=== PATIENT | male | born 1980 ===

== ENCOUNTER 2018-02-11 14:30 | Emergency (ER) | payer SELFPAY ==
[2018-02-11 14:39] VITALS: BMI 25.8
[2018-02-11 14:45] VITALS: TEMP 98.7
[2018-02-11] MEDS ORDERED: Multivitamin (MVI) 10 ML, Thiamine 100 MG, Folic Acid 1 MG in Dextrose 5% In Water 1,00... IV ONE (14:47)
--- NOTE | 2018-02-11 14:47 | ED PDOC ---
Arrival/HPI - General Chief Complaint: Alcohol Ingestion Time Seen by Provider: 02/11/18 14:43 Historian: Patient - History of Present Illness Narrative History of Present Illness (Text): 02/11/18 14:44 38 y/o male, no significant pmh, nkda, biba for publicly intoxication x 1 hour. Pt. was found by the police which he was found sleeping on the street with alcohol breath. Pt. stated that he has no fall or trauma, no head/neck or back pain, stated that he just want to sleep, no abdominal or pelvic pain, no night sweat, no rash, no numbness or tingling, no other medical or psychological complaints. Past Medical History - Provider Review Nursing Documentation Reviewed: Yes - Infectious Disease Hx of Infectious Diseases: None - Musculoskeletal/Rheumatological Hx Falls: Yes - Psychiatric Hx Substance Use: No Other/Comment: Alcohol Abuse Family/Social History - Physician Review Nursing Documentation Reviewed: Yes Family/Social History: Unknown Family HX Smoking Status: Current Some Days Smoker Hx Alcohol Use: Yes Frequency of alcohol use: Daily Hx Substance Use: No Allergies/Home Meds Allergies/Adverse Reactions: Allergies No Known Allergies Allergy (Verified 02/11/18 14:36) Home Medications: Home Meds Medication Instructions Recorded Confirmed No Known Home Med 02/11/18 02/11/18 Review of Systems - Review of Systems Constitutional: absent: Fatigue, Fevers Eyes: absent: Vision Changes ENT: absent: Hearing Changes Respiratory: absent: SOB, Cough Cardiovascular: absent: Chest Pain Gastrointestinal: absent: Abdominal Pain, Nausea, Vomiting Skin: absent: Rash, Pruritis Neurological: absent: Headache, Dizziness Psychiatric: absent: Anxiety, Depression, Suicidal Ideation Physical Exam Vital Signs Reviewed: Yes Vital Signs Temp Pulse Resp BP Pulse Ox 02/11/18 16:28 100 H 18 111/76 97 02/11/18 14:44 98.7 F 101 H 22 128/85 98 Temperature: Afebrile Blood Pressure: Normal Pulse: Tachycardic Respiratory Rate: Normal Appearance: Positive for: Well-Appearing, Non-Toxic, Comfortable Pain Distress: None Mental Status: Positive for: Alert and Oriented X 3 - Systems Exam Head: Present: Atraumatic, Normocephalic. No: Tenderness, Contusion, Swelling, Ecchymosis, Abrasion, Laceration, Other Pupils: Present: PERRL Extroacular Muscles: Present: EOMI Conjunctiva: Present: Normal Ears: Present: NORMAL TM, Normal Canal. No: Erythema Mouth: Present: Moist Mucous Membranes Pharnyx: No: ERYTHEMA, EXUDATE, TONSILS ENLARGED Nose (External): Present: Atraumatic. No: Abrasion, Contusion, Laceration, Lesions, Other Nose (Internal): Present: Normal Inspection, No Active Bleeding. No: Rhinorrhea , Septal Deviation, Septal Hematoma, Epistaxis Neck: Present: Normal Range of Motion, Trachea Midline. No: MIDLINE TENDERNESS , Paraspinal Tenderness, Lymphadenopathy Respiratory/Chest: Present: Clear to Auscultation, Good Air Exchange. No: Respiratory Distress, Accessory Muscle Use Cardiovascular: Present: Regular Rate and Rhythm, Normal S1, S2. No: Murmurs Abdomen: No: Tenderness, Distention, Peritoneal Signs, Rebound, Guarding Back: Present: Normal Inspection Upper Extremity: Present: Normal Inspection, Normal ROM. No: Cyanosis, Edema, Tenderness, Swelling, Deformity Lower Extremity: Present: Normal Inspection, Normal ROM, Neurovascularly Intact. No: Edema, Tenderness, Swelling, Deformity Neurological: Present: GCS=15, CN II-XII Intact, Speech Normal, Motor Func Grossly Intact, Memory Normal Skin: Present: Warm, Dry, Normal Color. No: Rashes Psychiatric: Present: Alert, Oriented x 3, Normal Insight, Normal Concentration Medical Decision Making ED Course and Treatment: 02/11/18 14:49 -Labs/CK level -IV banana bag -Observe until sober 02/11/18 23:42 -Labs reviewed, potassium corrected, pt. is awake. Pt. is walking with normal gait and posture, no focal neurological deficits, no signs of withdrawal, no medical or psychological complaints, will discharge home. -Discharge home with education on bed rest, follow up with your own pmd within 2 days, return to the ER for any new or worsening signs or symptoms. - Lab Interpretations Lab Results: 02/11/18 14:58 02/11/18 20:51 Lab Results 02/11/18 20:51: Sodium 151 H, Potassium 3.9, Chloride 111 H, Carbon Dioxide 23, Anion Gap 21 H, BUN 8, Creatinine 0.7 L, Est GFR ( Amer) > 60, Est GFR ( Non-Af Amer) > 60, Random Glucose 94, Calcium 8.2 L, Total Bilirubin < 0.1 L, AST 47, ALT 51, Alkaline Phosphatase 48, Total Protein 7.5, Albumin 4.2, Globulin 3.3, Albumin/Globulin Ratio 1.3 02/11/18 14:58: WBC 7.0, RBC 4.27, Hgb 13.4 L, Hct 39.2 L, MCV 91.8, MCH 31.4, MCHC 34.2, RDW 14.1, Plt Count 327, MPV 8.3, Gran % 34.8 L, Lymph % (Auto) 54.6 H, Andrew % (Auto) 8.6 H, Eos % (Auto) 1.6, Baso % (Auto) 0.4, Gran # 2.43, Lymph # (Auto) 3.8 H, Andrew # (Auto) 0.6, Eos # (Auto) 0.1, Baso # (Auto) 0.03 02/11/18 14:58: Sodium 151 H, Potassium 3.5 L, Chloride 108 H, Carbon Dioxide 24 , Anion Gap 23 H, BUN 7, Creatinine 0.8, Est GFR ( Amer) > 60, Est GFR ( Non-Af Amer) > 60, Random Glucose 117 H, Calcium 8.8, Magnesium 2.0, Total Bilirubin 0.2, AST 54, ALT 60 H, Alkaline Phosphatase 49, Lactate Dehydrogenase 616, Total Creatine Kinase 288 H, CK-MB (CK-2) 2.1, CK-MB (CK-2) % Cancelled, Troponin I < 0.01, Total Protein 8.0, Albumin 4.5, Globulin 3.4, Albumin/ Globulin Ratio 1.3 - Medication Orders Current Medication Orders: Discontinued Medications Multivitamins/Vitamin C 10 ml/Thiamine HCl 100 mg/ Folic Acid 1 mg/ Dextrose 1, 011.2 mls @ 1,000 mls/hr IV .Q1H1M ONE Stop: 02/11/18 15:47 Last Admin: 02/11/18 16:34 Dose: 1,000 mls/hr eMAR Start Stop Document 02/11/18 16:34 [facility] [place] (Rec: 02/11/18 16:34 [facility] [place] [id number]) Intravenous Solution Start Date 02/11/18 Start Time 16:34 End Date 02/11/18 End time 17:35 Total Infusion Time 61 Sodium Chloride (Sodium Chloride 0.9%) 1,000 mls @ 999 mls/hr IV .Q1H1M STA Stop: 02/11/18 17:07 Last Admin: 02/11/18 16:22 Dose: 999 mls/hr eMAR Start Stop Document 02/11/18 16:22 [facility] [place] (Rec: 02/11/18 16:23 [facility] [place] [id number]) Intravenous Solution Start Date 02/11/18 Start Time 16:22 End Date 02/11/18 End time 17:25 Total Infusion Time 63 Potassium Chloride (K-Dur 20 Meq Er Tab) 20 meq PO STAT STA Stop: 02/11/18 16:01 Last Admin: 02/11/18 16:23 Dose: 20 meq - 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 Disposition/Present on Arrival - Present on Arrival Any Indicators Present on Arrival: No History of DVT/PE: No History of Uncontrolled Diabetes: No Urinary Catheter: No History of Decub. Ulcer: No History Surgical Site Infection Following: None - Disposition Have Diagnosis and Disposition been Completed?: Yes Diagnosis: Alcohol intoxication, Hypokalemia Disposition: HOME/ ROUTINE Disposition Time: 14:50 Patient Plan: Discharge Patient Problems: Current Active Problems Problem Status Onset Alcohol intoxication Acute Hypokalemia Acute Condition: IMPROVED Additional Instructions: -Discharge home with education on bed rest, follow up with your own pmd within 2 days, return to the ER for any new or worsening signs or symptoms. Referrals: PCP,NO [Primary Care Provider] - [place] up [place] primary [facility] [place] [facility] [place] - Follow up with primary
[2018-02-11 15:41] LABS: ALB/GLOB RATIO 1.3 (1.1-1.8); ALBUMIN 4.5 g/dL (3.0-4.8); ALT/SGPT 60 U/L (7-56); AST/SGOT 54 U/L (17-59); BLOOD UREA NITROGEN 7 mg/dL (7-21); CALCIUM 8.8 mg/dL (8.4-10.5); GFR AFRICAN-AMERICAN > 60; GFR NON-AFRICAN AMERICAN > 60
[2018-02-11 15:52] LABS: TROPONIN I < 0.01 ng/mL
[2018-02-11 15:58] LABS: BASO # 0.03 K/mm3 (0.0-2.0); BASO % 0.4 % (0.0-3.0); EOS # 0.1 (0.0-0.7); EOS % 1.6 % (1.5-5.0); GRAN # 2.43 (1.4-6.5); GRAN % 34.8 % (50.0-68.0); HEMOGLOBIN 13.4 g/dL (14.0-18.0); LYMPH # 3.8 (1.2-3.4); LYMPH % 54.6 % (22.0-35.0); MEAN CELL VOLUME 91.8 fl (80.0-105.0); MEAN CORPUSCULAR HEMOGLOBIN 31.4 pg (25.0-35.0); MEAN CORPUSCULAR HGB CONC 34.2 g/dl (31.0-37.0); MEAN PLATELET VOLUME 8.3 fl (7.0-11.0); MONO # 0.6 (0.1-0.6); MONO % 8.6 % (1.0-6.0); RBC 4.27 10^6/uL (3.5-6.1); RED CELL DISTRIBUTION WIDTH 14.1 % (11.5-14.5)
[2018-02-11] MEDS ORDERED: Potassium Chloride 20 mEq ER Tab PO STA (16:00)
[2018-02-11] MEDS ORDERED: Sodium Chloride 0.9% 1,000 ML IV STA (16:07)
[2018-02-11 16:28] VITALS: RESP 18
[2018-02-11 16:37] LABS: CK-MB 2.1 ng/mL (0.0-3.6)
[2018-02-11 21:03] LABS: ALB/GLOB RATIO 1.3 (1.1-1.8); ALBUMIN 4.2 g/dL (3.0-4.8); ALT/SGPT 51 U/L (7-56); AST/SGOT 47 U/L (17-59); BLOOD UREA NITROGEN 8 mg/dL (7-21); CALCIUM 8.2 mg/dL (8.4-10.5); GFR AFRICAN-AMERICAN > 60; GFR NON-AFRICAN AMERICAN > 60
[2018-02-12 00:01] VITALS: BP 118/74; PULSE 85; O2SAT 99
== END 2018-02-11 23:54 | disposition home or self-care (01) ==
LOC: ED 14:30
DX: F10.129 Alcohol abuse with intoxication, unspecified (principal); E87.6 Hypokalemia
CPT/HCPCS: 80053; 82550; 82553; 83615; 83735; 84484; 85025; 96365; 99284; J3411; J7040; J7070